=== PATIENT | female | born 1955 ===

== ENCOUNTER 2024-07-15 09:12 | Inpatient (IN) | payer OTHER ==
[~2024-07-15] VITALS: Ht 157.5 cm; Wt 54.4 kg
[2024-07-15] MEDS ORDERED: CHILDREN'S ASPI81 MG PO (09:19)
[2024-07-15] MEDS ORDERED: ALTACE5 MG PO (09:19)
[2024-07-15] MEDS ORDERED: CARDIZEM CD120 MG PO (09:19)
[2024-07-15] MEDS ORDERED: VYTORIN 10-201 EACH PO (09:20)
[2024-07-20] MEDS ORDERED: ERTAPENEM SODIUM 1,000 MG VIAL IV ONE (11:30)
[2024-07-20] MEDS ORDERED: LIDOCAINE HCL 1%/EPINEPHRINE 20ML VIAL IJ ONE (11:30)
[2024-07-20] MEDS ORDERED: BUPIVACAINE HCL 30 ML VIAL IJ ONE (11:30)
[2024-07-20] MEDS ORDERED: MORPHINE SULFATE 4 MG/ML CARTRIDGE IV PRN (12:45)
[2024-07-20] MEDS ORDERED: SUGAMMADEX SODIUM 200 MG/2 ML VIAL IV ONE (12:45)
[2024-07-20] MEDS ORDERED: OxyCODONE HCL 5 MG TABLET (ROXICODONE) PO PRN (12:45)
[2024-07-20] MEDS ORDERED: DEXTROSE 50 % IN WATER 0.5 G/ML DISP.SYRIN IV PRN (12:45)
[2024-07-20] MEDS ORDERED: RINGERS SOLUTION,LACTATED 1,000 ML IV SCH (12:45)
[2024-07-20] MEDS ORDERED: ONDANSETRON HCL 2 MG/ML VIAL IV PRN (12:45)
[2024-07-20] MEDS ORDERED: HYOSCYAMINE SULFATE 0.125 MG TAB.SUBL SL SCH (13:00)
[2024-07-20] MEDS ORDERED: MORPHINE SULFATE 4 MG/ML VIAL IV ONE ×2 (13:40→14:10)
[2024-07-20] MEDS ORDERED: ACETAMINOPHEN 500 MG GEL..CAP PO SCH (14:00)
[2024-07-20 15:09] LABS: HEMATOCRIT 39.7 % (36.0-45.00); HEMOGLOBIN 13.2 g/dL (12.0-15.00); MEAN CELL VOLUME 93.4 fL (80.00-100.00); MEAN CORPUSCULAR HGB CONC 33.1 g/dl (32.0-36.0); PLATELET COUNT 260 K/uL (150-450); RED BLOOD COUNT 4.25 M/uL (4.00-6.00); RED CELL DISTRIBUTION WIDTH 13.3 % (11.5-14.5)
[2024-07-20 15:40] LABS: ALBUMIN 3.4 gm/dL (3.4-5.0); CALCIUM 8.8 mg/dL (8.5-10.1); CREATININE SERUM 0.88 mg/dL (0.55-1.02); GFR 63.52; PHOSPHOROUS 4.3 mg/dL (2.5-4.9); POTASSIUM 4.06 mEq/L (3.5-5.1)
[2024-07-20] MEDS ORDERED: CELECOXIB 200 MG CAPSULE PO SCH (17:00)
[2024-07-20] MEDS ORDERED: POLYETHYLENE GLYCOL 3350 17 GM BLIST.PACK PO SCH (17:00)
[2024-07-20] MEDS ORDERED: GABAPENTIN 300 MG CAPSULE PO SCH (17:00)
[2024-07-20 17:40] VITALS: BP 135/72; O2SAT 97
[2024-07-20] MEDS ORDERED: ENALAPRILAT DIHYDRATE 1.25 MG/ML VIAL IV PRN (18:00)
[2024-07-20] MEDS ORDERED: FAMOTIDINE/PF 20 MG/2 ML VIAL IV PUSH SCH (21:00)
[2024-07-21 00:41] VITALS: BP 141/65; O2SAT 96
[2024-07-21 07:42] LABS: HEMATOCRIT 41.2 % (36.0-45.00); MEAN CELL VOLUME 92.7 fL (80.00-100.00); MEAN CORPUSCULAR HEMOGLOBIN 31.5 pg (27.00-32.0); PLATELET COUNT 203 K/uL (150-450); RED BLOOD COUNT 4.45 M/uL (4.00-6.00); RED CELL DISTRIBUTION WIDTH 12.7 % (11.5-14.5)
[2024-07-21 08:00] VITALS: BP 122/57; O2SAT 95
[2024-07-21 08:30] LABS: ALBUMIN 3.4 gm/dL (3.4-5.0); CREATININE SERUM 0.68 mg/dL (0.55-1.02); GFR 85.54; MAGNESIUM 1.9 mg/dL (1.8-2.4); PHOSPHOROUS 2.6 mg/dL (2.5-4.9); POTASSIUM 4.31 mEq/L (3.5-5.1)
[2024-07-21] MEDS ORDERED: RAMIPRIL 5 MG CAPSULE PO SCH (09:00)
[2024-07-21] MEDS ORDERED: DILTIAZEM HCL 120 MG CAP.SR.24H PO SCH (09:00)
[2024-07-21] MEDS ORDERED: LACTULOSE 20 G/30 ML BLIST.PACK PO SCH (09:00)
[2024-07-21] MEDS ORDERED: ENOXAPARIN SODIUM 40 MG/0.4 ML SYRINGE SUBCUTANEO SCH (17:00)
[2024-07-21] MEDS ORDERED: VYTORIN PO SCH (17:00)
[2024-07-21 18:57] VITALS: BP 100/56; O2SAT 95
[2024-07-22 01:43] VITALS: BP 101/53; O2SAT 98
[2024-07-22 08:00] VITALS: BP 134/73; O2SAT 95
[2024-07-22] MEDS ORDERED: ENOXAPARIN SODIUM 40 MG/0.4 ML SYRINGE SUBCUTANEO SCH (09:00)
== END 2024-07-22 13:30 | disposition home or self-care (01) | DRG 330 ==
LOC: O/R 07-20 05:43 → SURH 07-20 07:00
PROVIDERS: ADMIT Colon & Rectal Surgery; ATTEND Colon & Rectal Surgery
PROC: 0DBP4ZZ Excision of Rectum, Percutaneous Endoscopic Approach (ICD-10-PCS; 2024-07-20)
PROC: 0DJD8ZZ Inspection of Lower Intestinal Tract, Via Natural or Artificial Opening Endoscopic (ICD-10-PCS; 2024-07-20)
PROC: 0DTN4ZZ Resection of Sigmoid Colon, Percutaneous Endoscopic Approach (ICD-10-PCS; principal; 2024-07-20 07:00)
DX: K57.32 Diverticulitis of large intestine without perforation or abscess without bleeding (principal); K92.1 Melena; I10 Essential (primary) hypertension; E78.5 Hyperlipidemia, unspecified